=== PATIENT | female | born 1940 | race Caucasian/White ===

== ENCOUNTER → 2017-08-21 | Outpatient (CLI) | payer MEDICARE ==
[2017-08-21 08:10] LABS: LYMPH # 3.8 K/mm3 (0.7-4.5); LYMPH % 45.2 % (10-50.0)
[2017-08-21 10:01] LABS: BUN 12 mg/dL (7-18)
[2017-08-21 10:15] LABS: GFR (ESTIMATED) 82 ML/MIN (59-)
== END ==
LOC: LAB 07:37
PROVIDERS: Internal Medicine Adolescent Medicine
DX: I10 Essential (primary) hypertension (principal); G80.9 Cerebral palsy, unspecified; Z79.899 Other long term (current) drug therapy

== ENCOUNTER → 2017-08-23 | Outpatient (CLI) | payer MEDICARE ==
--- NOTE | 2017-08-24 10:34 | RADIOLOGY REPORT PS360 ---
MRI-L-SPINE W/O, MRI-3D RENDERING/MYELOGRAM HISTORY: Low back pain, spinal stenosis SPINAL STENOSIS OF LUMBAR REGION, LOW BACK PAIN ORDERING PHYSICIAN: Aris Gonsales MD PATIENT AGE: 77 years COMPARISON: None TECHNIQUE: Standard multiplanar multiecho sequences are performed without contrast. 3-D MIP and myelographic images are also rendered and reviewed FINDINGS: There is normal alignment. The spinal cord ends at the T12 level. T12-L1: Mild facet and ligamentum flavum hypertrophy. L1-L2: Unremarkable. L2-L3: Mild degenerative disc disease with minimal bulging disc along with facet and ligamentum flavum hypertrophy with mild bilateral lateral recess narrowing. 2 mm anterolisthesis of L2. L3-L4: Moderate Degenerative disc disease with bulging disc along with facet and ligamentum flavum hypertrophy with moderate left lateral recess and foraminal narrowing and mild right lateral recess and foraminal narrowing. There is a 12 mm area of decreased T1 and T2 signal involving the L4 vertebral body on the left and could be due to bone island. L4-L5: Moderate to severe degenerative disc disease with type I endplate changes and bulging disc along with facet and ligamentum flavum hypertrophy. The bulging disc is slightly eccentric toward the right. There is transverse canal stenosis at 10 to 11 mm with facet and ligamentum flavum hypertrophy along with moderate bilateral lateral recess and foraminal narrowing. L5-S1: Degenerative disc disease. No disc herniation. No acute fracture or dislocation. IMPRESSION: 1. Multilevel lumbar spondylosis as detailed above. Please see above for detailed description at each level. 2. Moderate Degenerative disc disease L3-L4 with bulging disc along with facet and ligamentum flavum hypertrophy with moderate left lateral recess and foraminal narrowing and mild right lateral recess and foraminal narrowing 3. Moderate to severe degenerative disc disease L4-5 with type I endplate changes and bulging disc along with facet and ligamentum flavum hypertrophy. The bulging disc is slightly eccentric toward the right. There is transverse canal stenosis at 10 to 11 mm with facet and ligamentum flavum hypertrophy along with moderate bilateral lateral recess and foraminal narrowing. 4. No disc herniation evident
== END ==
LOC: RAD 12:53
DX: M48.061 Spinal stenosis, lumbar region without neurogenic claudication (principal); M54.5 Low back pain